=== PATIENT | male | born 1965 | race Caucasian/White ===

== ENCOUNTER 2017-11-21 08:18 | Emergency (ER) | payer BC ==
--- NOTE | 2017-11-21 08:56 | ERPHSYRPT ---
- History of Present Illness Time Seen by Provider: 11/21/17 08:52 Source: patient Exam Limitations: no limitations Patient Subjective Stated Complaint: pt here for cough, chills, fever for 24 hours Triage Nursing Assessment: pt alert, resp easy, chest tight, skin w/d pink, no edema noted, has dry cough Physician History: cough, chills fever for 24 hours Pmh GERD, HTN Psh Right knee arthroscopy, bilateral carpal tunnel Timing/Duration: yesterday Severity: moderate Modifying Factors: Improves With: nothing Associated Symptoms: cough, chills, other (tight upper chest with breathing), No nausea, No vomiting, No abdominal pain, No shortness of breath, No heartburn , No diaphoresis, No chest pain, No fever, No headaches, No loss of appetite, No malaise, No rash, No syncope, No seizure, No weakness Allergies/Adverse Reactions: No Known Drug Allergies Allergy (Verified 11/21/17 08:36) Home Medications: Aspirin 81 mg PO HS 03/06/14 [History] Famotidine 20 mg PO HS 03/06/14 [History] Lisinopril 20 mg [Zestril 20 MG] 20 mg PO HS 03/06/14 [History] Zolpidem Tartrate [Ambien] 10 mg PO HS 03/06/14 [History] Ascorbic Acid 500 mg [Vitamin C 500 MG] 500 mg PO DAILY 08/10/14 [History] FA/Mv,Ca,Iron,Min/Lycopene/Lut [Centrum Tablet] 1 each PO DAILY 08/10/14 [ History] Ciprofloxacin [Cipro 500 MG] 500 mg BID 05/26/16 [History] Varenicline Tartrate [Chantix] 1 mg DAILY 11/21/17 [History] Hx Tetanus, Diphtheria Vaccination/Date Given: No Hx Influenza Vaccination/Date Given: Yes Hx Pneumococcal Vaccination/Date Given: No Immunizations Up to Date: Yes - Review of Systems Constitutional: Fever, Chills, No Fatigue, No Lethargy, No Malaise, No Night Sweats, No Weakness, No Weight Loss Eyes: No Symptoms Ears, Nose, & Throat: No Symptoms Respiratory: Cough, No Cyanosis, No Dyspnea, No Dyspnea on Exertion (HERNADEZ), No Stridor, No Wheezing Cardiac: Other (tight ipper chest with breathing) Abdominal/Gastrointestinal: No Abdominal Pain, No Nausea, No Vomiting, No Diarrhea Genitourinary Symptoms: No Dysuria Musculoskeletal: No Back Pain, No Neck Pain Skin: No Rash Neurological: No Dizziness, No Focal Weakness, No Sensory Changes Psychological: No Symptoms Endocrine: No Symptoms All Other Systems: Reviewed and Negative - Past Medical History Pertinent Past Medical History: Yes Neurological History: No Pertinent History ENT History: No Pertinent History Cardiac History: Hypertension Respiratory History: No Pertinent History Endocrine Medical History: No Pertinent History Musculoskeletal History: No Pertinent History GI Medical History: GERD History: No Pertinent History Psycho-Social History: No Pertinent History Male Reproductive Disorders: No Pertinent History - Past Surgical History Past Surgical History: Yes Neuro Surgical History: No Pertinent History Cardiac: No Pertinent History Respiratory: No Pertinent History Gastrointestinal: Appendectomy Genitourinary: No Pertinent History Musculoskeletal: Orthopedic Surgery Male Surgical History: Vasectomy Other Surgical History: R knee arthroscopy x3. bilateral carpal tunnel repair, colonoscopy - Social History Smoking Status: Never smoker Exposure to second hand smoke: No Drug Use: none Patient Lives Alone: No - Nursing Vital Signs Nursing Vital Signs: Initial Vital Signs Temperature 101.6 F 11/21/17 08:28 Pulse Rate 107 H 11/21/17 08:28 Respiratory Rate 18 11/21/17 08:28 Blood Pressure 141/70 11/21/17 08:28 O2 Sat by Pulse Oximetry 96 11/21/17 08:28 Pain Scale Pain Intensity 0 - Physical Exam General Appearance: mild distress, other (frequent cough) Eye Exam: PERRL/EOMI, eyes nml inspection Ears, Nose, Throat Exam: normal ENT inspection, TMs normal, pharynx normal, moist mucous membranes Neck Exam: normal inspection, non-tender, supple, full range of motion Respiratory Exam: normal breath sounds, lungs clear, No respiratory distress Cardiovascular Exam: regular rate/rhythm, normal heart sounds, normal peripheral pulses Gastrointestinal/Abdomen Exam: soft, normal bowel sounds, No tenderness, No mass Back Exam: normal inspection, normal range of motion, No CVA tenderness, No vertebral tenderness Extremity Exam: normal inspection, normal range of motion, pelvis stable Neurologic Exam: alert, oriented x 3, cooperative, normal mood/affect, nml cerebellar function, nml station & gait, sensation nml, No motor deficits Skin Exam: normal color, warm, dry, No rash Lymphatic Exam: No adenopathy SpO2 Interpretation: normal (95%) SpO2: 95 Oxygen Delivery: Room Air - Course Nursing assessment & vital signs reviewed: Yes EKG Interpreted by Me: RATE (96 bpm), Sinus Rhythm, NORMAL AXIS, Other (ekg: normal sinus rhythm, 96 bpm. normal axis, no acute st or t wave changes noted.) - Radiology Exams Chest X-ray Interpretation: Interpreted by me (no acute disease process noted) Ordered Tests: Active Orders 24 hr Category Date Time Status EKG-ER Only STAT Care 11/21/17 08:51 Active IV Insertion STAT Care 11/21/17 08:51 Active CHEST 1 VIEW (PORTABLE) Stat Exams 11/21/17 08:51 Taken CBC W DIFF Stat Lab 11/21/17 09:08 Completed CMP Routine Lab 11/21/17 09:12 Completed CULTURE,URINE Stat Lab 11/21/17 11:00 Received Manual Differential NC Stat Lab 11/21/17 09:08 Completed TROPONIN Q3H Lab 11/21/17 09:12 Completed TROPONIN Q3H Lab 11/21/17 12:25 Completed TROPONIN Q3H Lab 11/21/17 15:00 Ordered TROPONIN Q3H Lab 11/21/17 18:00 Ordered TROPONIN Q3H Lab 11/21/17 21:00 Ordered UA W/ MICROSCOPIC Stat Lab 11/21/17 11:00 Completed Respiratory Nebulizer STAT RT 11/21/17 11:01 Completed Medication Summary Discontinued Medications Generic Name Dose Route Start Last Admin Trade Name Freq PRN Reason Stop Dose Admin Acetaminophen 975 mg 11/21/17 09:05 11/21/17 09:10 Tylenol 325 Mg PO 11/21/17 09:06 975 mg STAT ONE Administration Acetaminophen Confirm 11/21/17 09:09 Tylenol 325 Mg Administered 11/21/17 09:10 Dose 975 mg .ROUTE .STK-MED ONE Albuterol/Ipratropium 3 ml 11/21/17 11:00 11/21/17 11:10 Duoneb 0.5-3 Mg/3 Ml Neb IH 11/21/17 11:01 3 ml STAT ONE Administration Albuterol/Ipratropium Confirm 11/21/17 11:07 Duoneb 0.5-3 Mg/3 Ml Neb Administered 11/21/17 11:08 Dose 3 ml IH .STK-MED ONE Sodium Chloride 1,000 mls @ 999 mls/hr 11/21/17 09:06 11/21/17 09:10 Sodium Chloride 0.9% 1000 Ml IV 11/21/17 10:06 999 mls/hr .Q1H1M STA Administration Sodium Chloride Confirm 11/21/17 09:09 Sodium Chloride 0.9% 1000 Ml Administered 11/21/17 09:10 Dose 1,000 mls @ ud .ROUTE .STK-MED ONE Ceftriaxone Sodium/Dextrose 1 g in 50 mls @ 100 mls/hr 11/21/17 11:14 11:21 Rocephin 1 Gm-D5w 50 Ml Bag IV 11/21/17 11:43 100 mls/hr STAT STA Administration Sodium Chloride 1,000 mls @ 999 mls/hr 11/21/17 11:14 11/21/17 11:22 Sodium Chloride 0.9% 1000 Ml IV 11/21/17 12:14 999 mls/hr .Q1H1M STA Administration Sodium Chloride Confirm 11/21/17 11:19 Sodium Chloride 0.9% 1000 Ml Administered 11/21/17 11:20 Dose 1,000 mls @ ud .ROUTE .STK-MED ONE Ceftriaxone Sodium/Dextrose Confirm 11/21/17 11:19 Rocephin 1 Gm-D5w 50 Ml Bag Administered 11/21/17 11:20 Dose 1 g in 50 mls @ ud IV .STK-MED ONE Oseltamivir Phosphate 75 mg 11/21/17 11:09 11/21/17 11:22 Tamiflu 75mg Capsule PO 11/21/17 11:10 75 mg STAT ONE Administration Oseltamivir Phosphate Confirm 11/21/17 11:19 Tamiflu 75mg Capsule Administered 11/21/17 11:20 Dose 75 mg PO .STK-MED ONE Lab/Rad Data: Laboratory Result Diagrams 11/21/17 09:08 11/21/17 09:12 Laboratory Results 11/21/17 11/21/17 11/21/17 Range/Units 12:25 11:00 09:12 WBC (4.0-10.5) K/mm3 RBC (4.1-5.6) M/mm3 Hgb (12.5-18.0) gm/dl Hct (42-50) % MCV (78-100) fl MCH (26-32) pg MCHC (32-36) g/dl RDW (11.5-14.0) % Plt Count (150-450) K/mm3 MPV (6-9.5) fl Segmented Neutrophils (36.-66.) % Band Neutrophils (0.0-2.0) % Lymphocytes (Manual) (24-44) % Monocytes (Manual) (0.0-12.0) % Eosinophils (Manual) (0.00-3.0) % Differential Comment Toxic Granulation Platelet Estimate (NORMAL) Sodium 135 L (136-145) mEq/L Potassium 3.9 (3.5-5.1) mEq/L Chloride 102 (98-107) mEq/L Carbon Dioxide 23.2 (21-32) mEq/L Anion Gap 14.0 (5-15) MEQ/L BUN 18 (9-20) mg/dL Creatinine 1.07 (0.55-1.30) mg/dl Estimated GFR > 60 ML/MIN Glucose 114 H (70-110) MG/DL Calcium 8.6 (8.5-10.1) mg/dL Total Bilirubin 0.90 (0.2-1.0) mg/dL AST 42 H (15-37) U/L ALT 56 (12-78) U/L Alkaline Phosphatase 99 (46-116) U/L Troponin I < 0.017 < 0.017 (0.000-0.056) ng/ml Serum Total Protein 7.0 (6.4-8.2) gm/dL Albumin 3.7 (3.4-5.0) g/dL Ur Collection Type CLEAN CATCH Urine Color YELLOW (YELLOW) Urine Appearance CLEAR (CLEAR) Urine pH 5.0 (5-6) Ur Specific [place] 1.015 (1.005-1.025) Urine Protein NEGATIVE (Negative) Urine Ketones NEGATIVE (NEGATIVE) Urine Blood SMALL (0-5) Kiran/ul Urine Nitrite NEGATIVE (NEGATIVE) Urine Bilirubin NEGATIVE (NEGATIVE) Urine Urobilinogen NORMAL (0-1) mg/dL Ur Leukocyte Esterase TRACE (NEGATIVE) Urine Microscopic RBC 5-10 (0-2) /HPF Urine Microscopic WBC 0-2 (0-5) /HPF Ur Epithelial Cells RARE (FEW) /HPF Urine Bacteria FEW (NEGATIVE) /HPF Urine Culture Reflexed YES (NO) Urine Glucose NEGATIVE (NEGATIVE) mg/dL Influenza Type A Ag (NEGATIVE) Influenza Type B Ag (NEGATIVE) RSV (PCR) (Negative) Specimen Received 11/21/2017 1100 11/21/17 11/21/17 Range/Units 09:08 09:08 WBC 12.1 H (4.0-10.5) K/mm3 RBC 5.00 (4.1-5.6) M/mm3 Hgb 14.8 (12.5-18.0) gm/dl Hct 43.6 (42-50) % MCV 87.2 (78-100) fl MCH 29.6 (26-32) pg MCHC 33.9 (32-36) g/dl RDW 13.2 (11.5-14.0) % Plt Count 210 (150-450) K/mm3 MPV 10.1 H (6-9.5) fl Segmented Neutrophils 80 H (36.-66.) % Band Neutrophils 5 H (0.0-2.0) % Lymphocytes (Manual) 5 L (24-44) % Monocytes (Manual) 9 (0.0-12.0) % Eosinophils (Manual) 1 (0.00-3.0) % Differential Comment ABNORMAL Toxic Granulation 2+ Platelet Estimate NORMAL (NORMAL) Sodium (136-145) mEq/L Potassium (3.5-5.1) mEq/L Chloride (98-107) mEq/L Carbon Dioxide (21-32) mEq/L Anion Gap (5-15) MEQ/L BUN (9-20) mg/dL Creatinine (0.55-1.30) mg/dl Estimated GFR ML/MIN Glucose (70-110) MG/DL Calcium (8.5-10.1) mg/dL Total Bilirubin (0.2-1.0) mg/dL AST (15-37) U/L ALT (12-78) U/L Alkaline Phosphatase (46-116) U/L Troponin I (0.000-0.056) ng/ml Serum Total Protein (6.4-8.2) gm/dL Albumin (3.4-5.0) g/dL Ur Collection Type Urine Color (YELLOW) Urine Appearance (CLEAR) Urine pH (5-6) Ur Specific [place] (1.005-1.025) Urine Protein (Negative) Urine Ketones (NEGATIVE) Urine Blood (0-5) Kiran/ul Urine Nitrite (NEGATIVE) Urine Bilirubin (NEGATIVE) Urine Urobilinogen (0-1) mg/dL Ur Leukocyte Esterase (NEGATIVE) Urine Microscopic RBC (0-2) /HPF Urine Microscopic WBC (0-5) /HPF Ur Epithelial Cells (FEW) /HPF Urine Bacteria (NEGATIVE) /HPF Urine Culture Reflexed (NO) Urine Glucose (NEGATIVE) mg/dL Influenza Type A Ag POSITIVE (NEGATIVE) Influenza Type B Ag NEGATIVE (NEGATIVE) RSV (PCR) NEGATIVE (Negative) Specimen Received - Progress Progress: improved Progress Note: 11/21/17 11:02 Patient feeling better, temp improving patient positive for influenza, family states patient burning with urination will check urine, patient states feels tight with breathing will give duoneb treatment 11/21/17 13:25 repeat troponin wnl will release with tamiflu, zithromax. albuterol - Departure Time of Disposition: 13:26 Departure Disposition: Home Clinical Impression: Bronchitis with bronchospasm, Influenza A Condition: Fair Critical Care Time: No Referrals: ABISAI OVIEDO [Primary Care Provider] - Instructions: Cough -- Adult Additional Instructions: Return home, plenty of fluids, Tamiflu as prescribed Zithromax as prescribed tylenol every 4 hours as needed for pain or temperature greater than 100.5 albuterol inhaler 2 puffs every 4-6 hours as needed. follow up with your family doctor. Return for acute distress or for severe symptoms. Prescriptions: Albuterol Common Canister [Proventil Common Canister] 2 puff IH Q4-6HPRN PRN #1 puff PRN Reason: sob wheezing Azithromycin 250 mg [Zithromax 250 MG TABLET] 0 mg PO ZPACK #6 tablet Oseltamivir 75 mg [Tamiflu 75MG Capsule] 75 mg PO BID #10 cap
[2017-11-21] MEDS ORDERED: TYLENOL 325 MG PO ONE (09:05)
[2017-11-21] MEDS ORDERED: Sodium Chloride 0.9% 1000 ML 1,000 ML IV STA ×2 (09:06→11:14)
[2017-11-21] MEDS ORDERED: Sodium Chloride 0.9% 1000 ML 1,000 ML ONE ×2 (09:09→11:19)
[2017-11-21] MEDS ORDERED: TYLENOL 325 MG ONE (09:09)
[2017-11-21 09:20] LABS: Mean Cell Volume 87.2 fl (78-100); Mean Corpuscular Hemoglobin 29.6 pg (26-32); Mean Platelet Volume 10.1 fl (6-9.5); Platelet Count 210 K/mm3 (150-450); Red Cell Distribution Width 13.2 % (11.5-14.0); White Blood Count 12.1 K/mm3 (4.0-10.5)
[2017-11-21 09:38] LABS: ALBUMIN 3.7 g/dL (3.4-5.0); ALKALINE PHOSPHATASE 99 U/L (46-116); BLOOD UREA NITROGEN 18 mg/dL (9-20); CHLORIDE 102 mEq/L (98-107); Carbon Dioxide 23.2 mEq/L (21-32); Glucose 114 MG/DL (70-110); Potassium 3.9 mEq/L (3.5-5.1); SGOT/AST 42 U/L (15-37); SGPT/ALT 56 U/L (12-78); SODIUM 135 mEq/L (136-145)
[2017-11-21 09:49] LABS: TROPONIN < 0.017 ng/ml (0.000-0.056)
[2017-11-21 10:19] LABS: BAND 5 % (0.0-2.0); Eosinophil 1 % (0.00-3.0); Platelet Estimate NORMAL (NORMAL); Total Cells Counted 100
[2017-11-21 10:20] LABS: Toxic Granulation 2+
[2017-11-21] MEDS ORDERED: DUONEB 0.5-3 MG/3 ml Neb IH ONE ×2 (11:00→11:07)
[2017-11-21] MEDS ORDERED: Tamiflu 75MG Capsule PO ONE ×2 (11:09→11:19)
[2017-11-21 11:14] LABS: Bilirubin NEGATIVE (NEGATIVE); Collection Type CLEAN CATCH; Glucose NEGATIVE (NEGATIVE); Leukocyte Esterase TRACE (NEGATIVE)
[2017-11-21] MEDS ORDERED: ROCEPHIN 1 Gm-D5w 50 ml Bag** 1 G/50 ML IVPB IV STA (11:14)
[2017-11-21 11:15] LABS: Blood SMALL Ery/ul (0-5); COMPLETE URINE MICROSCOPIC? YES; WBC 0-2 /HPF (0-5)
[2017-11-21 11:16] LABS: ADD URINE CULTURE? YES (NO); Bacteria FEW /HPF (NEGATIVE); Epithelial Cells RARE /HPF (FEW)
[2017-11-21] MEDS ORDERED: ROCEPHIN 1 Gm-D5w 50 ml Bag** 1 G/50 ML IVPB IV ONE (11:19)
[2017-11-21 13:21] VITALS: BP 127/69; PULSE 86
[2017-11-21 13:32] VITALS: O2SAT 95
--- NOTE | 2017-11-21 20:28 | XRAY ---
Indication: Cough and congestion. Comparison: March 06, 2014. Portable chest less inflated today without focal infiltrate, consolidation, or large effusion. Heart is not enlarged. Bony thorax intact again with mild degenerative changes. Impression: Nonacute chest.
== END 2017-11-21 13:41 | disposition home or self-care (01) ==
LOC: ED 08:18
DX: J40 Bronchitis, not specified as acute or chronic (principal); J98.01 Acute bronchospasm; J11.1 Influenza due to unidentified influenza virus with other respiratory manifestations
CPT/HCPCS: 36000; 36415; 71010; 80053; 81000; 84484; 85025; 87086; 87631; 93005; 94640; 96360; 96361; 96365; 99283; J0696; A9270-GY